=== PATIENT | male | born 1995 | race Caucasian/White ===

== ENCOUNTER 2021-03-04 16:05 | Emergency (ER) | payer BC, SELFPAY ==
--- OUTSIDE RECORDS SUMMARY | 2021-03-04 16:17 | XMS REPORT | Continuity of Care Document ---
:1995 Author Organization [facility] t Address [address] [place] [address] Care Team Providers Name Role Phone Unavailable Unavailable Unavailable Problems Condition Condition Condition Status Onset Resolution Last Treating Co mments Source Name Details Category Date Date Treatment Clinician Date Anxiety Anxiety Problem [facility] Drug abuse Drug abuse Problem [facility] Mild Mild Problem Active [facility]mitte [facility] - nt acute nt acute Memori a asthmatic asthmatic l bronchitis bronchitis Ou tpati ent Clinics ADHD ADHD Problem Active [facility] (attention (attention [facility] - deficit deficit Memoria hyperactiv hyperactiv l ity ity Outpati disorder), disorder), 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 Medications Ordered Filled Start Stop Current Ordering Indication Dosage Frequency Signature Comments Components Source Medication Medication Date Date Medication? Clinician (SIG) Name Name BuPROPion BuPROPion Yes Luís [address] [facility] HCl ER (SR) HCl ER (SR) 5-30 [facility] Procedures This patient has no known procedures. Encounters Start End Encounter Admission Attending Care Care Encounter Source Date/Time Date/Time Type Type Clinicians Facility Department ID 2018-02-21 2018-02-21 Outpatient Qian Almaguer [id number] [facility] 13:24:00 13:24:00 [facility] l Medicine Outpati ent Clinics 2018-01-29 2018-01-29 Outpatient Qian Almaguer [id number] [facility] 15:30:00 15:30:[address] [facility] Medicine Medicine Outpati ent Clinics Results This patient has no known results.
[2021-03-04] MEDS ORDERED: NA CHLORIDE 0.9% 1,000 ML ONE ×2 (16:58→19:00)
[2021-03-04 17:12] LABS: Albumin 5.3 g/dL (3.4-5.0); Bilirubin Direct 0.4 mg/dL (0-0.2); Bilirubin Total 1.5 mg/dL (0.2-1.0); Potassium 3.8 mmol/L (3.5-5.1); Protein, Total 9.4 g/dL (6.4-8.2)
[2021-03-04 17:28] LABS: Absolute Lymphocytes (CBC) 1.4 K/uL (0.7-4.9); Basophils % 0.4 % (0-1.3); Hematocrit 48.2 % (39.6-49.0); Lymphocytes % 8.4 % (15.3-44.8); MPV 8.7 fL (7.6-11.3)
[2021-03-04] MEDS ORDERED: DIPHENHYDRAMINE 50 MG/ML VIAL ONE (19:00)
[2021-03-04] MEDS ORDERED: METOCLOPRAMIDE 10 MG/2mL INJ ONE (19:00)
--- NOTE | 2021-03-04 19:02 | RAD REPORT ---
EXAM DESCRIPTION: CTAbdomen Pelvis W Contrast - 03/04/2021 6:43 pm CLINICAL HISTORY: Abdominal pain. vomiting, abdominal pain COMPARISON: <Comparisons> TECHNIQUE: Biphasic CT imaging of the abdomen and pelvis was performed with 100 ml non-ionic IV cont rast. All CT scans are performed using dose optimization technique as appropriate and may include automated exposure control or mA/KV adjustment according to patient size. FINDINGS: The lung bases are clear. The liver, spleen, pancreas, adrenal glands and kidneys are within normal limits. No bowel obstruction, free air, free fluid or abscess. Scattered colonic diverticulosis is present. T he appendix is normal. No evidence of significant lymphadenopathy. No suspicious bony findings. IMPRESSION: No acute intra-abdominal or pelvic finding. Scattered colonic diverticulosis.
--- NOTE | 2021-03-04 20:49 | ER ---
Nurse's Notes [facility] Name: Aristeo Green Age: 26 yrs Sex: Male : 1995 Arrival Date: 03/04/2021 Time: 16:06 Bed 5 Private MD: Diagnosis: Vomiting Presentation: 03/04 16:22 Chief complaint: Patient states: Pt stated, "I think I gave myself alcohol poisoning kg but I really dont know, I drank about 20 beers in 3 hrs. I've had nausea, vomiting, black diarrhea.". Coronavirus screen: Client denies travel out of the [place] in the last 14 days. At this time, unable to obtain information related to travel outside the [place] At this time, the client does not indicate any symptoms associated with coronavirus-19. Ebola Screen: Patient negative for fever greater than or equal to 101.5 degrees Fahrenheit, and additional compatible Ebola Virus Disease symptoms Patient denies exposure to infectious person. Patient denies travel to an Ebola-affected area in the 21 days before illness onset. Initial Sepsis Screen: Does the patient meet any 2 criteria? No. Patient's initial sepsis screen is negative. Does the patient have a suspected source of infection? No. Patient's initial sepsis screen is negative. Risk Assessment: Do you want to hurt yourself or someone else? Patient reports no desire to harm self or others. Onset of symptoms was February 28, 2021. 16:22 Method Of Arrival: Ambulatory kg 16:22 Acuity: SAPNA 3 kg Triage Assessment: 16:27 General: Appears in no apparent distress. Behavior is calm, cooperative, appropriate kg for age, quiet. Pain: Complains of pain in abdomen Pain currently is 7 out of 10 on a pain scale. at worst was 10 out of 10 on a pain scale. level that patient reports is acceptable is 5 out of 10 on a pain scale. Quality of pain is described as aching, stabbing, throbbing, "vibrating discomfort". GI: Reports lower abdominal pain, upper abdominal pain, diarrhea, intolerance of fluids, intolerance of food, nausea, vomiting. Historical: - Home Meds: 16:27 None [Active]; kg - PMHx: 16:26 ADHD; Anxiety; kg 16:27 Schizophrenia; I think its underlying that hasnt been diagnosed; Depressive disorder; kg - PSHx: 16:27 None; kg - Immunization history:: Adult Immunizations not up to date, Client reports having NOT received the Covid vaccine. - Social history:: Smoking status: Reported history of juuling and/or vaping. Patient uses alcohol, patient/guardian reports recent binge of alcohol consumption. street drugs, marijuana. Screenin:31 Abuse screen: Denies threats or abuse. Denies injuries from another. Nutritional kg screening: No deficits noted. Tuberculosis screening: No symptoms or risk factors identified. Fall Risk None identified. No fall in past 12 months (0 pts). No secondary diagnosis (0 pts). No IV (0 pts). Ambulatory Aid- None/Bed Rest/Nurse Assist (0 pts). Gait- Normal/Bed Rest/Wheelchair (0 pts) Mental Status- Oriented to own ability (0 pts). Total Billings Fall Scale indicates No Risk (0-24 pts). Assessment: 18:04 General: Appears in no apparent distress. comfortable, Behavior is calm, cooperative, jd3 appropriate for age, anxious. Pain: Complains of pain in abdomen Quality of pain is described as aching, pressure. Neuro: Level of Consciousness is awake, alert, obeys commands, Oriented to person, place, time, situation. Cardiovascular: Denies chest pain, Capillary refill < 3 seconds Patient's skin is warm and dry. Respiratory: Airway is patent Respiratory effort is even, unlabored, Respiratory pattern is regular, symmetrical, Denies cough, shortness of breath at rest. GI: Abdomen is flat, non-distended, Abd is soft X 4 quads Abd is non tender in right upper quadrant and left upper quadrant Reports upper abdominal pain, intolerance of fluids, intolerance of food, nausea, vomiting. : No signs and/or symptoms were reported regarding the genitourinary system. EENT: No signs and/or symptoms were reported regarding the EENT system. Derm: Skin is intact, Skin is dry, Skin is normal, Skin temperature is warm. Musculoskeletal: Circulation, motion, and sensation intact. Range of motion: intact in all extremities. 19:45 Reassessment: Patient appears in no apparent distress at this time. Patient is alert, lp1 oriented x 3, equal unlabored respirations, skin warm/dry/pink. Patient denies pain at this time. 21:12 Reassessment: Patient appears in no apparent distress at this time. Patient is alert, lp1 oriented x 3, equal unlabored respirations, skin warm/dry/pink. Patient states feeling better. Patient states symptoms have improved. Vital Signs: 16:22 BP 151 / 105; Pulse 74; Resp 18; Temp 99.4(O); Pulse Ox 98% on R/A; Weight 81.51 kg kg (M); Height 5 ft. 11 in. (180.34 cm) (R); Pain 7/10; 18:07 BP 137 / 75; Pulse 74; Resp 17 S; Pulse Ox 98% on R/A; jd3 21:00 BP 140 / 71; Pulse 81; Resp 16; Pulse Ox 99% on R/A; lp1 21:12 BP 125 / 79; Pulse 71; Resp 16; Pulse Ox 100% on R/A; lp1 16:22 Body Mass Index 25.06 (81.51 kg, 180.34 cm) kg ED Course: 16:06 Patient arrived in ED. ds1 16:26 Triage completed. kg 16:31 Patient has correct armband on for positive identification. kg 16:32 Arm band placed on right wrist. kg 16:35 Inserted saline lock: 20 gauge in right antecubital area, using aseptic technique. kg 17:51 Nabor Callejas, RANJANA is Primary Nurse. jd3 17:51 Malcom Diaz PA is PHCP. jmm 17:51 Tejinder Antony MD is Attending Physician. jmm 18:43 CT Abd/Pelvis - IV Contrast Only In Process Unspecified. EDMS 19:33 Basic Metabolic Panel Sent. bs2 19:33 Hepatic Function Sent. bs2 20:47 Ginger Jarrett MD is Referral Physician. jmm 20:58 No provider procedures requiring assistance completed. lp1 21:12 IV discontinued, No redness/swelling at site. Pressure dressing applied. lp1 Administered Medications: 16:45 Drug: NS 0.9% 1000 ml Route: IV; Rate: 1 bolus; Site: right antecubital; kg 18:52 Drug: NS 0.9% 1000 ml Route: IV; Rate: 1 bolus; Site: right antecubital; jd3 21:13 Follow up: IV Status: Completed infusion; IV Intake: 1000ml lp1 18:52 Drug: Reglan (metoCLOPramide) 20 mg {Note: given in NS bolus.} Route: IVP; Site: right jd3 antecubital; 19:33 Follow up: Response: No adverse reaction bs2 18:53 Drug: diphenhydrAMINE 12.5 mg Route: IVP; Site: right antecubital; jd3 19:33 Follow up: Response: No adverse reaction bs2 Intake: 21:13 IV: 1000ml; Total: 1000ml. lp1 Outcome: 20:49 Discharge ordered by . griselda 21:12 Discharged to home ambulatory, with family. lp1 21:12 Condition: good 21:12 Discharge instructions given to patient, Instructed on discharge instructions, follow up and referral plans. medication usage, Demonstrated understanding of instructions, follow-up care, medications, Prescriptions given X 1. 21:13 Patient left the ED. lp1 Signatures: Dispatcher [employer] EDMS Malcom Diaz PA PA jmm Sanford, Demi ds1 Balbina Stuart RN RN lp1 Nabor Callejas RN RN jd3 Graham, Kristen, RN RN kg Smith, Bridget bs2
--- NOTE | 2021-03-04 20:49 | EDPHYS ---
Physician Documentation [facility] Name: Aristeo Green Age: 26 yrs Sex: Male : 1995 Arrival Date: 03/04/2021 Time: 16:06 Bed 5 Private MD: ED Physician Tejinder Antony HPI: 03/04 18:28 This 26 yrs old Male presents to ER via Ambulatory with complaints of Nausea, jmm Vomiting. 18:28 The patient presents to the emergency department with nausea, vomiting, abdominal pain. jmm Onset: The symptoms/episode began/occurred gradually, 4 day(s) ago. Possible causes: unknown. The symptoms are aggravated by nothing. The symptoms are alleviated by nothing. This is a 26 year old male with a history of schizophrenia, anxiety that presents to the ED with complaints of abdominal pain, vomiting beginning approx 4 days ago after a night of drinking etoh. Denies diarrhea. . Historical: - Home Meds: 16:27 None [Active]; kg - PMHx: 16:26 ADHD; Anxiety; kg 16:27 Schizophrenia; I think its underlying that hasnt been diagnosed; Depressive disorder; kg - PSHx: 16:27 None; kg - Immunization history:: Adult Immunizations not up to date, Client reports having NOT received the Covid vaccine. - Social history:: Smoking status: Reported history of juuling and/or vaping. Patient uses alcohol, patient/guardian reports recent binge of alcohol consumption. street drugs, marijuana. ROS: 18:28 Constitutional: Negative for fever, chills, and weight loss, Cardiovascular: Negative jmm for chest pain, palpitations, and edema, Respiratory: Negative for shortness of breath, cough, wheezing, and pleuritic chest pain. 18:28 Abdomen/GI: Positive for abdominal pain, vomiting. 18:28 All other systems are negative. Exam: 18:28 Constitutional: This is a well developed, well nourished patient who is awake, alert, jmm and in no acute distress. Head/Face: atraumatic. Eyes: EOMI, no conjunctival erythema appreciated ENT: Moist Mucus Membranes Neck: Trachea midline, Supple Chest/axilla: Normal chest wall appearance and motion. Cardiovascular: Regular rate and rhythm. No edema appreciated Respiratory: Normal respirations, no respiratory distress appreciated 18:28 Skin: General appearance color normal MS/ Extremity: Moves all extremities, no obvious deformities appreciated, no edema noted to the lower extremities Neuro: Awake and alert, normal gait Psych: Behavior is normal, Mood is normal, Patient is cooperative and pleasant 18:28 Abdomen/GI: Inspection: abdomen appears normal, Bowel sounds: normal, Palpation: soft, mild abdominal tenderness, in the left upper quadrant. Vital Signs: 16:22 BP 151 / 105; Pulse 74; Resp 18; Temp 99.4(O); Pulse Ox 98% on R/A; Weight 81.51 kg kg (M); Height 5 ft. 11 in. (180.34 cm) (R); Pain 7/10; 18:07 BP 137 / 75; Pulse 74; Resp 17 S; Pulse Ox 98% on R/A; jd3 21:00 BP 140 / 71; Pulse 81; Resp 16; Pulse Ox 99% on R/A; lp1 21:12 BP 125 / 79; Pulse 71; Resp 16; Pulse Ox 100% on R/A; lp1 16:22 Body Mass Index 25.06 (81.51 kg, 180.34 cm) kg MDM: 18:27 Patient medically screened. [facility] 20:46 Data reviewed: vital signs, nurses notes. Counseling: I had a detailed discussion with griselda the patient and/or guardian regarding: the historical points, exam findings, and any diagnostic results supporting the discharge/admit diagnosis, lab results, radiology results, the need for outpatient follow up, to return to the emergency department if symptoms worsen or persist or if there are any questions or concerns that arise at home. ED course: Patient is alert and non toxic in appearance. States feeling much better. Advised to follow up with gi and otherwise given strict return precautions. Patient understood and agrees with the plan of care. . 03/04 16:44 Order name: Basic Metabolic Panel kg 03/04 16:44 Order name: CBC with Diff; Complete Time: 18:15 kg 03/04 16:44 Order name: Hepatic Function kg 03/04 16:44 Order name: Lipase; Complete Time: 18:15 kg 03/04 16:45 Order name: Basic Metabolic Panel; Complete Time: 18:15 EDMS 03/04 16:45 Order name: Liver (Hepatic) Function; Complete Time: 18:15 EDMS 03/04 16:44 Order name: IV Saline Lock; Complete Time: 16:44 kg 03/04 16:44 Order name: Labs collected and sent; Complete Time: 16:44 kg 03/04 18:28 Order name: CT Abd/Pelvis - IV Contrast Only; Complete Time: 19:09 [facility] 03/04 20:16 Order name: Misc. Order: dispo after IVF; Complete Time: 21:09 [facility] Administered Medications: 16:45 Drug: NS 0.9% 1000 ml Route: IV; Rate: 1 bolus; Site: right antecubital; kg 18:52 Drug: NS 0.9% 1000 ml Route: IV; Rate: 1 bolus; Site: right antecubital; jd3 21:13 Follow up: IV Status: Completed infusion; IV Intake: 1000ml lp1 18:52 Drug: Reglan (metoCLOPramide) 20 mg {Note: given in NS bolus.} Route: IVP; Site: right jd3 antecubital; 19:33 Follow up: Response: No adverse reaction bs2 18:53 Drug: diphenhydrAMINE 12.5 mg Route: IVP; Site: right antecubital; jd3 19:33 Follow up: Response: No adverse reaction bs2 Disposition Summary: 03/04/21 20:49 Discharge Ordered Location: Home [facility] Condition: Stable [facility] Diagnosis - Vomiting [facility] Followup: [facility] - With: Ginger Jarrett MD - When: 2 - 3 days - Reason: Recheck today's complaints, Continuance of care, Re-evaluation by your physician Discharge Instructions: - Discharge Summary Sheet [facility] - Nausea and Vomiting, Adult [facility] Forms: - Medication Reconciliation Form [facility] - Thank You Letter [facility] - Antibiotic Education [facility] - Prescription Opioid Use [facility] Prescriptions: - ondansetron 4 mg Oral tablet,disintegrating - take 1 tablet by ORAL route every 4 hours As needed; 20 tablet; Refills: 0, [facility] Product Selection Permitted Addendum: 03/06/2021 13:41 Co-signature as Attending Physician, Tejinder Antony MD I agree with the assessment and k dr plan of care. Signatures: Dispatcher [employer] EDTejinder Arthur MD MD kdr Mickail, Joel, PA PA [facility] Nabor Callejas RN RN jd3 Mikala Uriarte RN RN kg Balbina Stuart RN lp1 Maryann Curran bs2
[2021-03-04 21:34] VITALS: TEMP 99.4
[2021-03-04 21:39] VITALS: BP 125/79; O2SAT 100
== END 2021-03-04 21:13 | disposition home or self-care (01) ==
LOC: ER 16:05
DX: R11.10 Vomiting, unspecified (principal)
CPT/HCPCS: 36415; 74177; 80048; 80076; 83690; 85025; 96361; 96374; 96375; 99284; J1200; J2765; J7030; Q9967

== ENCOUNTER 2024-05-19 19:49 | Emergency (ER) | payer SELFPAY ==
[2024-05-19 20:35] LABS: Absolute Basophils 0.1 K/uL (0-0.5); Absolute Eosinophils 0.1 K/uL (0-0.5); Absolute Lymphocytes (CBC) 2.6 K/uL (0.7-4.9); Absolute Monocytes 0.5 K/uL (0.1-1.3); Absolute Neutrophil 3.7 K/uL (1.8-8.0); Basophils % 1.1 % (0-1.3); Eosinophils % 1.3 % (0-4.4); Hemoglobin 15.3 g/dL (13.6-17.9); Lymphocytes % 36.9 % (15.3-44.8); MCH 30.2 pg (27.0-35.0); MCHC 34.7 g/dL (32.0-36.0); MCV 86.9 fL (80-100); MPV 7.7 fL (7.6-11.3); Monocytes % 7.8 % (3.3-12.3); Neutrophils % 52.9 % (41.7-73.7); Nucleated Red Blood Cells % 0.2 % (0-0); Platelets 276 thou/uL (152-406); RBC Red Blood Cell Count 5.06 M/uL (4.33-5.43); Red Cell Distribution Width 12.4 % (12.1-15.2)
[2024-05-19 20:49] LABS: ALT/SGPT 34 U/L (16-61); AST/SGOT 15 U/L (15-37); Albumin 4.1 g/dL (3.4-5.0); Albumin/Globulin Ratio 1.1 (1.1-1.8); Alkaline Phosphatase 80 U/L (45-117); Anion Gap 6.7 mEq/L (5.0-15.0); BUN Blood Urea Nitrogen 14 mg/dL (7-18); Bicarbonate 28 mEq/L (21-32); Bilirubin Total 0.3 mg/dL (0.2-1.0); Globulin 3.9 g/dL (2.3-3.5); Glomerular Filtration Rate 90 ml/min (=/>90); Glucose Level 94 mg/dL (74-106); Magnesium 2.1 mg/dL (1.6-2.4); Potassium 3.7 mEq/L (3.5-5.1); Sodium Level 137 mEq/L (136-145); Troponin High Sensitivity 3.5 pg/mL (<58.9)
[2024-05-19 20:50] LABS: Bilirubin Direct < 0.2 mg/dL (0-0.2); Bilirubin Indirect, Calculated 0.1 mg/dL (0.2-0.8)
--- NOTE | 2024-05-19 21:14 | RAD REPORT ---
EXAMINATION: ONE VIEW CHEST XR CLINICAL INDICATION: Male, 29 years old. [facility] MAIN PALPITATIONS Bed Name: 12 TECHNIQUE: Frontal chest projection is submitted. Examination is limited by patient positioning and t echnique. COMPARISON: No prior exam. FINDINGS: The lungs are well inflated and clear. No pneumothorax or sizable effusion. The heart is normal in s ize. IMPRESSION: No acute intrathoracic abnormalities.
--- NOTE | 2024-05-19 21:37 | ER ---
Nurse's Notes [facility] [place] [place] Name: Aristeo Green Age: 29 yrs Sex: Male : 1995 Arrival Date: 05/19/2024 Time: 19:49 Bed 12 Private MD: Diagnosis: Palpitations Presentation: 05/19 20:01 Chief complaint: Patient states: my hearts messing with me. i feel like its going to 3 beat out of my chest affecting my swallowing for a couple of months now. Coronavirus screen: Client denies travel out of the [place] in the last 14 days. At this time, the client does not indicate any symptoms associated with coronavirus-19. Ebola Screen: No symptoms or risks identified at this time. Initial Sepsis Screen: Does the patient meet any 2 criteria? No. Patient's initial sepsis screen is negative. Does the patient have a suspected source of infection? No. Patient's initial sepsis screen is negative. Risk Assessment: Do you want to hurt yourself or someone else? Patient reports no desire to harm self or others. Onset of symptoms is unknown. 20:01 Method Of Arrival: Ambulatory lg3 20:01 Acuity: SAPNA 3 lg3 Triage Assessment: 20:02 General: Appears in no apparent distress. comfortable, Behavior is cooperative, lg3 anxious. Pain: Denies pain. EENT: No deficits noted. No signs and/or symptoms were reported regarding the EENT system. Neuro: No deficits noted. Schroeder Agitation-Sedation Scale (RASS): 0 - Alert and Calm Level of Consciousness is awake, alert, obeys commands, Oriented to person, place, time, situation. Cardiovascular: No deficits noted. Reports palpitations. Respiratory: No deficits noted. Airway is patent Respiratory effort is even, unlabored, Respiratory pattern is regular, symmetrical. GI: No deficits noted. No signs and/or symptoms were reported involving the gastrointestinal system. : No deficits noted. No signs and/or symptoms were reported regarding the genitourinary system. Derm: No deficits noted. No signs and/or symptoms reported regarding the dermatologic system. Skin is intact, is healthy with good turgor, Skin is dry, Skin is normal, Skin temperature is warm. Musculoskeletal: No deficits noted. No signs and/or symptoms reported regarding the musculoskeletal system. Circulation, motion, and sensation intact. Range of motion: intact in all extremities. Historical: - Allergies: 20:02 No Known Allergies; lg3 - Home Meds: 20:02 None [Active]; lg3 - PMHx: 20:02 adhd; Anxiety; depressive disorder; Schizophrenia; I think its underlying that hasnt lg3 been diagnosed; - PSHx: 20:02 None; lg3 - Immunization history:: Adult Immunizations up to date. - Infectious Disease History:: Denies. - Social history:: Smoking status: Reported history of juuling and/or vaping. Patient uses street drugs, marijuana, THCP. Screenin:05 [facility] ED Fall Risk Assessment (Adult) History of falling in the last 3 months, me1 including since admission No falls in past 3 months (0 pts) Confusion or Disorientation No (0 pts) Intoxicated or Sedated No (0 pts) Impaired Gait No (0 pts) Mobility Assist Device Used No (0 pt) Altered Elimination No (0 pt) Score/Fall Risk Level 0 - 2 = Low Risk Maintained a safe environment, Provided non-skid footwear, Hourly rounding (assess needs \T\ fall precautionary measures) done. Abuse screen: Denies threats or abuse. Nutritional screening: No deficits noted. Tuberculosis screening: No symptoms or risk factors identified. Assessment: 20:05 General: Appears comfortable, well groomed, well developed, well nourished, Behavior is me1 calm, cooperative, appropriate for age, Reports my hearts messing with me. I feel like its going to beat out of my chest affecting my swallowing for a couple of months now. Pain: Complains of pain in chest Pain does not radiate. Pain currently is 0 out of 10 on a pain scale. at worst was 6 out of 10 on a pain scale. Quality of pain is described as pulsating, Pain began suddenly, Is intermittent. Neuro: Level of Consciousness is awake, alert, obeys commands, Oriented to person, place, time, situation, Appropriate for age. Cardiovascular: Reports chest pain, palpitations, Patient's skin is warm and dry. Respiratory: Airway is patent Respiratory effort is even, unlabored, Respiratory pattern is regular, symmetrical. GI: No signs and/or symptoms were reported involving the gastrointestinal system. : No signs and/or symptoms were reported regarding the genitourinary system. EENT: No signs and/or symptoms were reported regarding the EENT system. Derm: Skin is intact, is healthy with good turgor, Skin is pink, warm \T\ dry. Musculoskeletal: No signs and/or symptoms reported regarding the musculoskeletal system. Vital Signs: 20:01 BP 143 / 92; Pulse 97; Resp 17 S; Temp 98.4(TE); Pulse Ox 99% on R/A; Weight 108.86 kg lg3 (R); Height 5 ft. 11 in. (R); Pain 0/10; 21:00 BP 138 / 91; Pulse 82; Resp 17; Pulse Ox 100% ; me1 21:45 BP 112 / 89; Pulse 74; Resp 18; Temp 98.1; Pulse Ox 100% ; me1 20:01 Body Mass Index 33.47 (108.86 kg, 180.34 cm) lg3 20:01 Pain Scale: Adult lg3 ED Course: 19:55 Patient arrived in ED. im 20:00 Beverly Govea FNP-C is [facility]. kb 20:01 Bryce Chiu MD is Attending Physician. kb 20:02 Triage completed. lg3 20:02 Arm band placed on right wrist. lg3 20:05 Patient has correct armband on for positive identification. Bed in low position. Call mi1 light in reach. Side rails up X 1. Provided Education on: POC. Verbalized understanding.. Client placed on continuous cardiac and pulse oximetry monitoring. NIBP monitoring applied. monitoring engineer on. Pulse ox on. NIBP on. 20:05 No provider procedures requiring assistance completed. Patient maintains SpO2 me1 saturation greater than 95% on room air. 20:10 Yolanda Segovia, RN is Primary Nurse. me1 20:21 Basic Metabolic Panel Sent. me1 20:21 CBC with Diff Sent. me1 20:21 D-Dimer Sent. me1 20:21 LFT's Sent. me1 20:21 Magnesium Sent. me1 20:21 Troponin HS Sent. me1 20:21 Initial lab(s) drawn, by me, sent to lab. Inserted saline lock: 22 gauge in right me1 antecubital area, using aseptic technique. 21:03 XRAY Chest (1 view) In Process Unspecified. EDMS 21:07 EKG done, by ED staff, reviewed by Beverly MORTON. me1 21:50 IV discontinued, intact, bleeding controlled, No redness/swelling at site. Pressure me1 dressing applied. Administered Medications: No medications were administered Medication: 20:05 VIS not applicable for this client. me1 Outcome: 21:37 Discharge ordered by . nellie 21:50 Discharged to home ambulatory, with family, me1 21:50 Condition: stable 21:50 Discharge instructions given to patient, Instructed on discharge instructions, follow up and referral plans. Demonstrated understanding of instructions, follow-up care, 21:56 Patient left the ED. me1 Signatures: Dispatcher [employer] EDCO Beverly Govea FNP-C FNP-Ckb Able, Lacie RN RN lg3 Celeste Campbell Michelle, RN RN me1 Corrections: (The following items were deleted from the chart) 22:38 20:01 Chief complaint: Patient states: my hearts messing with me. i feel like its going me1 to beat out of my chest affecting my swallowing for a couple of months now lg3
--- NOTE | 2024-05-19 21:37 | EDPHYS ---
Physician Documentation [facility] Name: Aristeo Green Age: 29 yrs Sex: Male : 1995 Arrival Date: 05/19/2024 Time: 19:49 Bed 12 Private MD: ED Physician Bryce Chiu HPI: 05/19 22:34 This 29 yrs old Male presents to ER via Ambulatory with complaints of Chest Pain, kb Palpitations. 22:35 Pt is a 29 year old male who presents for palpitations and chest pain that has been kb intermittent for a few months. States it is aggravated by salty foods and smoking. Denies shortness of breath. States the episodes are getting worse. Historical: - Allergies: 20:02 No Known Allergies; lg3 - Home Meds: 20:02 None [Active]; lg3 - PMHx: 20:02 adhd; Anxiety; depressive disorder; Schizophrenia; I think its underlying that hasnt lg3 been diagnosed; - PSHx: 20:02 None; lg3 - Immunization history:: Adult Immunizations up to date. - Infectious Disease History:: Denies. - Social history:: Smoking status: Reported history of juuling and/or vaping. Patient uses street drugs, marijuana, THCP. ROS: 21:20 Constitutional: As per HPI kb Exam: 21:20 Constitutional: This is a well developed, well nourished patient who is awake, alert, kb and in no acute distress. Head/Face: Normocephalic, atraumatic. ENT: Moist Mucous membranes Cardiovascular: Regular rate Respiratory: Respirations even and unlabored. No increased work of breathing. Talking in full sentences Abdomen/GI: Soft, non-tender. No distention Skin: Warm, dry with normal turgor. Normal color. MS/ Extremity: Pulses equal, no cyanosis. Neurovascular intact. Full, normal range of motion. Neuro: Awake and alert, GCS 15, oriented to person, place, time, and situation. Moves all extremities. Normal gait. 22:34 ECG was reviewed by the Attending Physician. kb Vital Signs: 20:01 BP 143 / 92; Pulse 97; Resp 17 S; Temp 98.4(TE); Pulse Ox 99% on R/A; Weight 108.86 kg lg3 (R); Height 5 ft. 11 in. (R); Pain 0/10; 21:00 BP 138 / 91; Pulse 82; Resp 17; Pulse Ox 100% ; me1 21:45 BP 112 / 89; Pulse 74; Resp 18; Temp 98.1; Pulse Ox 100% ; me1 20:01 Body Mass Index 33.47 (108.86 kg, 180.34 cm) lg3 20:01 Pain Scale: Adult lg3 MDM: 20:01 Patient medically screened. kb 22:33 Differential diagnosis: arrhythmia, acute TN, abnormal electrolytes, anxiety. Data kb reviewed: vital signs, nurses notes. Counseling: I had a detailed discussion with the patient and/or guardian regarding the historical points, exam findings, and any diagnostic results supporting the discharge/admit diagnosis, lab results, radiology results, the need for outpatient follow up, a family practitioner, to return to the emergency department if symptoms worsen or persist or if there are any questions or concerns that arise at home. ED course: Patient currently has no complaints. Respirations even unlabored, lungs clear bilaterally, tolerating p.o. intake. Stable for discharge.. 05/19 20:07 Order name: Basic Metabolic Panel; Complete Time: 20:56 kb 05/19 20:07 Order name: CBC with Diff; Complete Time: 20:44 kb 05/19 20:07 Order name: D-Dimer; Complete Time: 20:56 kb 05/19 20:07 Order name: LFT's; Complete Time: 20:56 kb 05/19 20:07 Order name: Magnesium; Complete Time: 20:56 kb 05/19 20:07 Order name: Troponin HS; Complete Time: 20:56 kb 05/19 20:07 Order name: XRAY Chest (1 view); Complete Time: 21:20 kb 05/19 20:07 Order name: EKG; Complete Time: 20:07 kb 05/19 20:07 Order name: Cardiac monitoring; Complete Time: 21:07 kb 05/19 20:07 Order name: EKG - Nurse/Tech; Complete Time: 21:07 kb 05/19 20:07 Order name: IV Saline Lock; Complete Time: 20:21 kb 05/19 20:07 Order name: Labs collected and sent; Complete Time: 20:21 kb 05/19 20:07 Order name: O2 Per Protocol; Complete Time: 20:12 kb 05/19 20:07 Order name: O2 Sat Monitoring; Complete Time: 20:12 kb EC:34 Rate is 70 beats/min. Rhythm is regular. QRS [place] is Normal. [place] interval is normal at kb 144 msec. QRS interval is normal at 96 msec. QT interval is normal at 386 msec. Administered Medications: No medications were administered Disposition: 05/20 06:24 Co-signature as Attending Physician, Bryce Chiu MD I agree with the assessment sp4 and plan of care. I reviewed the patient's care provided by the Advanced Practice Provider and agree with the diagnosis and treatment plan. Disposition Summary: 05/19/24 21:37 Discharge Ordered Notes: Location: Home kb Condition: Stable kb Diagnosis - Palpitations kb Followup: kb - With: Emergency Department - When: As needed - Reason: Worsening of condition Followup: kb - With: Private Physician - When: 2 - 3 days - Reason: Recheck today's complaints, Continuance of care, Re-evaluation by your physician Discharge Instructions: - Discharge Summary Sheet kb - Palpitations, [id number] kb Forms: - Medication Reconciliation Form kb - Antibiotic Education kb - Prescription Opioid Use kb - Patient Portal Instructions kb - Leadership Thank You Letter kb Signatures: Dispatcher [employer] EDMS Beverly Govea, PHILIP-C PHILIP-Yolette Felix RN RN lg3 Bryce Chiu MD MD sp4 Corrections: (The following items were deleted from the chart) 05/19 22:38 22:35 Pt is a 29 year old male who presents for palpitations and chest pain that has kb been intermittent for a few months. States it is aggravated by salty foods, smoking . kb
[2024-05-19 22:13] VITALS: BP 143/92; TEMP 98.4; O2SAT 99
--- NOTE | 2024-05-21 12:23 | EKG ---
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
== END 2024-05-19 21:56 | disposition home or self-care (01) ==
LOC: ER 19:49
DX: R00.2 Palpitations (principal); R07.9 Chest pain, unspecified
CPT/HCPCS: 36415; 71045; 80048; 80076; 83735; 84484; 85025; 85379; 93005; 99284